=== PATIENT | male | born 1955 | race American Indian/Alaskan Native ===

== ENCOUNTER 2016-11-21 19:21 | Emergency (ER) | payer MEDICAID ==
[2016-11-21 19:39] VITALS: TEMP 97.8; BMI 33.0
--- NOTE | 2016-11-21 20:06 | ED PDOC ---
Arrival/HPI - General Chief Complaint: Back Pain Time Seen by Provider: 11/21/16 19:53 Historian: Patient - History of Present Illness Time/Duration: Other (2 weeks) Symptom Onset: Gradual Symptom Course: Unchanged Quality: Aching Activities at Onset: Rest Associated Symptoms (Text): 11/21/16 20:03 Patient complains of approximately a two-week history of right neck and right upper back pain with radiation into his right upper extremity. There is no injury or trauma. He complains of numbness in his right upper extremity, but no weakness. He was seen at another hospital emergency department approximately one week ago and given a prescription for Naprosyn which he did not fill. No chest pain palpitations or dyspnea. Past Medical History - Provider Review Nursing Documentation Reviewed: Yes - Infectious Disease Hx of Infectious Diseases: None - Tetanus Immunization Tetanus Immunization: Unknown - Cardiac Hx Cardiac Disorders: No - Pulmonary Hx Respiratory Disorders: No (CIGARETTE SMOKING) - Neurological Hx Neurological Disorder: No - HEENT Hx HEENT Disorder: No (WEARS RX GLASSES) - Renal Hx Renal Disorder: No - Endocrine/Metabolic Hx Endocrine Disorders: No - Hematological/Oncological Hx Blood Disorders: No - Integumentary Hx Dermatological Disorder: No - Musculoskeletal/Rheumatological Hx Arthritis: Yes - Gastrointestinal Hx Gastrointestinal Disorders: No - Genitourinary/Gynecological Hx Genitourinary Disorders: No - Psychiatric Hx Psychophysiologic Disorder: (SMOKING CIGARETTE,DRINKS BEER,H/O OF SUBSTANCE ABUSE BUT DENIES) Hx Depression: No Hx Emotional Abuse: No Hx Physical Abuse: No Hx Substance Use: No - Past Surgical History Past Surgical History: Non-Contributing - Suicidal Assessment Feels Threatened In Home Enviroment: No Family/Social History - Physician Review Nursing Documentation Reviewed: Yes Family/Social History: No Known Family HX Smoking Status: Former Smoker (quit smoking 5 years ago) Hx Alcohol Use: Yes (2 BEERS DURING NIGHTIME) Hx Substance Use: No Hx Substance Use Treatment: No Allergies/Home Meds Allergies/Adverse Reactions: Allergies No Known Allergies Allergy (Verified 10/11/13 11:02) Home Medications: Home Meds Medication Instructions Recorded Confirmed Cyclobenzaprine [Flexeril] 10 mg PO DAILY 10/11/13 10/11/13 Diclofenac [Diclofenac Sodium] 25 mg PO DAILY 10/11/13 10/11/13 Review of Systems - Physician Review All systems were reviewed & negative as marked: Yes - Review of Systems Constitutional: Normal Respiratory: Normal Cardiovascular: Normal Gastrointestinal: Normal Musculoskeletal: Back Pain, Neck Pain Neurological: Other (right upper extremity numbness). absent: Headache, Dizziness, Focal Weakness, Gait Changes Physical Exam Vital Signs Reviewed: Yes Vital Signs Temp Pulse Resp BP Pulse Ox 11/21/16 19:38 97.8 F 86 18 134/90 96 Temperature: Afebrile Blood Pressure: Normal Pulse: Regular Respiratory Rate: Normal Appearance: Positive for: Well-Appearing, Non-Toxic, Comfortable Pain Distress: None Mental Status: Positive for: Alert and Oriented X 3 - Systems Exam Head: Present: Atraumatic, Normocephalic Neck: Present: Normal Range of Motion, Paraspinal Tenderness (right paraspinous tenderness). No: Meningeal Signs, MIDLINE TENDERNESS Respiratory/Chest: Present: Clear to Auscultation, Good Air Exchange. No: Respiratory Distress, Accessory Muscle Use Cardiovascular: Present: Regular Rate and Rhythm, Normal S1, S2. No: Murmurs Back: Present: Normal Inspection. No: CVA Tenderness, Midline Tenderness, Paraspinal Tenderness Upper Extremity: Present: Normal Inspection, Normal ROM, NORMAL PULSES, Neurovascularly Intact, Other (painful range of motion of the right shoulder). No: Cyanosis, Edema, Tenderness, Swelling, Erythema, Deformity Neurological: Present: GCS=15, CN II-XII Intact, Speech Normal, Motor Func Grossly Intact, Normal Sensory Function, Normal Cerebellar Funct Medical Decision Making ED Course and Treatment: 11/21/16 20:13 Impression: A 61 year old male with right neck and right upper back pain radiating to right upper extremity. Plan: -- Radiology cervical spine -- Toradol -- Reassess and disposition Prior Visits: Notes and results from previous visits were reviewed. Patient last reported to the emergency department on 10/11/13 for evaluation of chest pain and shortness of breath with exertion. Patient transferred to observation for chest pain management. Progress Notes: - RAD Interpretation Radiology Orders: 11/21/16 20:02 CERVICAL SPINE >18YR W/OBLIQUE [RAD] Stat Cervical spine shows DJD with no fracture or dislocation Assistant Associate Professor: ED Physician - Medication Orders Current Medication Orders: Discontinued Medications Ketorolac Tromethamine (Toradol) 30 mg IM ONCE ONE Stop: 11/21/16 20:03 - Scribe Statement The provider has reviewed the documentation as recorded by the Kirk Bryan Provider Scribe Attestation: All medical record entries made by the Kirk were at my direction and personally dictated by me. I have reviewed the chart and agree that the record accurately reflects my personal performance of the history, physical exam, medical decision making, and the department course for this patient. I have also personally directed, reviewed, and agree with the discharge instructions and disposition. Disposition/Present on Arrival - Present on Arrival Any Indicators Present on Arrival: No History of DVT/PE: No History of Uncontrolled Diabetes: No Urinary Catheter: No History of Decub. Ulcer: No History Surgical Site Infection Following: None - Disposition Have Diagnosis and Disposition been Completed?: Yes Diagnosis: Cervical myofascial strain, Cervical radiculopathy Disposition: HOME/ ROUTINE Disposition Time: 21:14 Patient Plan: Discharge Condition: GOOD Discharge Instructions (ExitCare): Cervical Radiculopathy (ED) Additional Instructions: Moist heat. Prescriptions: Cyclobenzaprine [Flexeril] 5 mg PO Q8 #15 tab Referrals: Lelo Clarke MD [Primary Care Provider] - Follow up with primary
[2016-11-21 21:48] VITALS: BP 130/81; PULSE 83; RESP 17; O2SAT 99
--- NOTE | 2016-11-22 09:11 | RAD ---
PROCEDURE: Cervical Spine Radiographs. HISTORY: Pain. COMPARISON: None. FINDINGS: BONES: Alignment maintained. No fracture. Dens Intact. DISC SPACES: Disc degeneration C5-6 SOFT TISSUES: Normal. No prevertebral soft tissue swelling. OTHER FINDINGS: None. 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
== END 2016-11-21 21:58 | disposition home or self-care (01) ==
LOC: ED 19:21
DX: M54.12 Radiculopathy, cervical region (principal); S16.1XXA Strain of muscle, fascia and tendon at neck level, initial encounter; X58.XXXA Exposure to other specified factors, initial encounter